=== PATIENT | female | born 1990 | race Caucasian/White ===

== ENCOUNTER 2020-03-05 09:04 | Emergency (ER) | payer OTHER ==
[2020-03-05 09:11] VITALS: BP 138/81
--- NOTE | 2020-03-05 09:43 | ED Physician Documentation ---
PD HPI URI - Stated complaint Stated Complaint: R EAR PX/FATIGUE - Chief complaint Chief Complaint: Heent - History obtained from History obtained from: Patient - History of Present Illness Timing - onset: How many days ago (has had some pain right ear for few days but got worse last night, with poor hearing.) Timing duration: Days Timing details: Gradual onset, Still present (worse last night) Associated symptoms: Sore throat (right side), Swollen nodes (right preauricular area). No: Fever, Chills, Dry cough, NVD Contributing factors: No: Sick contact Similar symptoms before: Has not had sx before Review of Systems Constitutional: denies: Fever, Chills Ears: reports: Loss of hearing, Ear pain. denies: Drainage/discharge Nose: denies: Rhinorrhea / runny nose, Congestion Throat: reports: Sore throat Respiratory: denies: Cough GI: denies: Nausea, Vomiting, Diarrhea Skin: denies: Rash, Lesions PD PAST MEDICAL HISTORY - Past Medical History Cardiovascular: None Respiratory: None Neuro: None Endocrine/Autoimmune: None - Present Medications Home Medications: Ambulatory Orders Medication Instructions Recorded Confirmed Amoxicillin 500 mg PO TID #21 capsule 03/05/20 Cetirizine [ZyrTEC] 10 mg PO DAILY #15 tablet 03/05/20 Naproxen 500 mg PO BID #20 tablet 03/05/20 - Allergies Allergies/Adverse Reactions: Allergies Allergy/AdvReac Type Severity Reaction Status Date / Time No Known Drug Allergies Allergy Verified 03/05/20 09:11 PD ED PE NORMAL - Vitals Vital signs reviewed: Yes - General General: Alert and oriented X 3, No acute distress, Well developed/nourished - HEENT HEENT: Pharynx benign. No: Ears normal (left is good; right with redness of the TM and fluid behind. ) - Neck Neck: Supple, no meningeal sign, Other (right preauricular small node. No tenderness at mastoid. ) - Cardiac Cardiac: RRR, No murmur - Respiratory Respiratory: Clear bilaterally Results - Vitals Vitals: Vital Signs - 24 hr 03/05/20 03/05/20 09:09 10:21 Temperature 36.6 C Heart Rate 73 78 Respiratory 16 16 Rate Blood Pressure 138/81 H O2 Saturation 98 100 Oxygen O2 Source Room air PD MEDICAL DECISION MAKING - ED course Complexity details: considered differential (ear drum with redness and swelling. Tonsils appear normal. ), d/w patient Departure - Departure Disposition: 01 Home, Self Care Clinical Impression: Right ear pain Otitis media Qualifiers: Otitis media type: suppurative Chronicity: acute Laterality: right Recurrence: non-recurrent Spontaneous tympanic membrane rupture: without spontaneous rupture Qualified Code(s): H66.001 - Acute suppurative otitis media without spontaneous rupture of ear drum, right ear Condition: Stable Record reviewed to determine appropriate education?: Yes Instructions: ED Otitis Media Acute Adult Prescriptions: Amoxicillin 500 mg PO TID #21 capsule Cetirizine [ZyrTEC] 10 mg PO DAILY #15 tablet Naproxen 500 mg PO BID #20 tablet Comments: Amoxicillin 3 times a day for a week. Add naproxen anti-inflammatory twice daily for a week to 10 days. Also cetirizine antihistamine daily for 1 to 2 weeks for presumed congestion and fluid in the middle ear. Add Tylenol if neede d for pain every 4-6 hours. Recheck if not improving well in the next couple of days and resolved over 3 to 5 days. Forms: Activity restrictions Discharge Date/Time: 03/05/20 10:21
[2020-03-05] MEDS ORDERED: CHERRY SYRUP 10 ML UDC PO ONE (10:03)
[2020-03-05] MEDS ORDERED: DEXAMETHASONE 10 MG/ML VIAL PO STA (10:03)
[2020-03-05] MEDS ORDERED: ACETAMINOPHEN 325 MG TABLET PO STA (10:03)
[2020-03-05] MEDS ORDERED: AMOXICILLIN 250 MG CAPSULE PO STA (10:03)
[2020-03-05] MEDS ORDERED: IBUPROFEN 600 MG TABLET PO STA (10:03)
== END 2020-03-05 10:21 | disposition home or self-care (01) ==
LOC: ED 09:04
DX: H66.001 Acute suppurative otitis media without spontaneous rupture of ear drum, right ear (principal)
CPT/HCPCS: 99283; 99284; A9270

== ENCOUNTER 2020-04-12 20:40 | Emergency (ER) | payer OTHER ==
[2020-04-12 21:58] LABS: BILIRUBIN,URINE NEGATIVE (NEGATIVE); GLUCOSE, URINE (UA) NEGATIVE (NEGATIVE); KETONES,URINE (UA) NEGATIVE (NEGATIVE); LEUKOCYTE ESTERASE, URINE NEGATIVE (NEGATIVE); NITRITE,URINE NEGATIVE (NEGATIVE); OCCULT BLOOD,URINE TRACE-INTA (NEGATIVE); PH,URINE 5.5 PH (5.0-7.5); PROTEIN,URINE NEGATIVE (NEGATIVE); UROBILINOGEN,URINE 0.2 (NORMAL) E.U./dL (NORMAL)
[2020-04-12 22:12] LABS: CLARITY,URINE CLEAR (CLEAR)
[2020-04-12 23:19] LABS: BASOPHILS # (AUTO) 0.1 10^3/uL (0.0-0.1); BASOPHILS % (AUTO) 0.6 %; EOSINOPHILS # (AUTO) 0.3 10^3/uL (0.0-0.7); EOSINOPHILS % (AUTO) 3.1 %; HGB - HEMOGLOBIN 15.9 g/dL (12.0-16.0); LYMPHOCYTES % (AUTO) 36.1 %; MEAN CORPUSCULAR HEMOGLOBIN 31.1 pg (27.0-31.0); MEAN CORPUSCULAR VOLUME 91.4 fL (81.0-99.0); MEAN PLATELET VOLUME 11.4 fL (7.9-10.8); MONOCYTES # (AUTO) 0.5 10^3/uL (0.0-1.0); MONOCYTES % (AUTO) 5.9 %; NEUTROPHILS # (AUTO) 4.5 10^3/uL (1.5-6.6); NEUTROPHILS % (AUTO) 54.1 %; PLT - PLATELET COUNT 234 10^3/uL (130-450); RED BLOOD COUNT 5.11 10^6/uL (4.20-5.40); RED CELL DISTRIBUTION WIDTH 11.9 % (12.0-15.0); WHITE BLOOD COUNT 8.3 x10^3/uL (4.8-10.8)
[2020-04-12 23:32] LABS: ALBUMIN 4.8 g/dL (3.2-5.5); ALBUMIN/GLOBULIN RATIO 1.7 (1.0-2.2); BILIRUBIN,TOTAL 0.5 mg/dL (0.2-1.0); CALCIUM 9.3 mg/dL (8.5-10.3); CREATININE 0.9 mg/dL (0.4-1.0); TOTAL PROTEIN 7.6 g/dL (6.7-8.2)
--- NOTE | 2020-04-12 23:44 | ED Physician Documentation ---
PD HPI ABD PAIN - Stated complaint Stated Complaint: FLANK PX - Chief complaint Chief Complaint: Abd Pain - History obtained from History obtained from: Patient - History of Present Illness Timing - onset: How many days ago (5) Timing - duration: Days Timing - details: Gradual onset, Waxing and waning Pain level max: 4 Quality: Pain Location: Other (left flank) Improved by: Other (nothing) Associated symptoms: No: Fever, Nausea, Vomiting, Diarrhea, Constipation Similar symptoms before: Has not had sx before Recently seen: Not recently seen Review of Systems Constitutional: reports: Reviewed and negative Cardiac: reports: Reviewed and negative Respiratory: reports: Reviewed and negative GI: reports: Reviewed and negative : denies: Dysuria, Frequency, Hematuria Skin: denies: Rash PD PAST MEDICAL HISTORY - Past Medical History Past Medical History: No Cardiovascular: None Respiratory: None Neuro: None Endocrine/Autoimmune: None GI: None 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 HEENT: None Psych: None Musculoskeletal: None Derm: None - Past Surgical History Past Surgical History: No - Present Medications Home Medications: Ambulatory Orders Medication Instructions Recorded Confirmed Amoxicillin 500 mg PO TID #21 capsule 03/05/20 Cetirizine [ZyrTEC] 10 mg PO DAILY #15 tablet 03/05/20 Naproxen 500 mg PO BID #20 tablet 03/05/20 - Allergies Allergies/Adverse Reactions: Allergies Allergy/AdvReac Type Severity Reaction Status Date / Time No Known Drug Allergies Allergy Verified 03/05/20 09:11 - Social History Does the pt smoke?: No Smoking Status: Never smoker Does the pt drink ETOH?: Yes Does the pt have substance abuse?: No - Immunizations Immunizations are current?: Yes - POLST Patient has POLST: No PD ED PE NORMAL - Vitals Vital signs reviewed: Yes - General General: Alert and oriented X 3, No acute distress, Well developed/nourished - Cardiac Cardiac: RRR, No murmur - Respiratory Respiratory: No respiratory distress, Clear bilaterally - Abdomen Abdomen: Normal bowel sounds, Soft, Non tender, Non distended - Back Back: No CVA TTP, No spinal TTP - Derm Derm: Normal color, Warm and dry, No rash - Extremities Extremities: No edema Results - Vitals Vitals: Vital Signs - 24 hr 04/13/20 02:13 Heart Rate 79 Respiratory 17 Rate Blood Pressure 131/93 H O2 Saturation 99 Oxygen O2 Source Room air - Labs Labs: Laboratory Tests 04/12/20 04/12/20 04/12/20 21:42 23:05 23:05 WBC 8.3 RBC 5.11 Hgb 15.9 Hct 46.7 MCV 91.4 MCH 31.1 H MCHC 34.0 RDW 11.9 L Plt Count 234 MPV 11.4 H Neut # (Auto) 4.5 Lymph # (Auto) 3.0 [place] # (Auto) 0.5 Eos # (Auto) 0.3 Baso # (Auto) 0.1 Absolute Nucleated RBC 0.00 Nucleated RBC % 0.0 Sodium 137 Potassium 3.5 Chloride 101 Carbon Dioxide 28 Anion Gap 8.0 BUN 12 Creatinine 0.9 Estimated GFR (MDRD) 75 L Glucose 92 Calcium 9.3 Total Bilirubin 0.5 AST 27 ALT 30 Alkaline Phosphatase 40 L Total Protein 7.6 Albumin 4.8 Globulin 2.8 Albumin/Globulin Ratio 1.7 Lipase 33 Urine Color YELLOW Urine Clarity CLEAR Urine pH 5.5 Ur Specific [place] >=1.030 H Urine Protein NEGATIVE Urine Glucose (UA) NEGATIVE Urine Ketones NEGATIVE Urine Occult Blood TRACE-INTA Urine Nitrite NEGATIVE Urine Bilirubin NEGATIVE Urine Urobilinogen 0.2 (NORMAL) Ur Leukocyte Esterase NEGATIVE Ur Microscopic Review NOT INDICATED Urine Culture Comments NOT INDICATED - Rads (name of study) CT A/P Radiology: Prelim report reviewed, See rad report PD MEDICAL DECISION MAKING - ED course Complexity details: reviewed results, re-evaluated patient, considered differential, d/w patient Departure - Departure Disposition: 01 Home, Self Care Clinical Impression: Flank pain Condition: Good Instructions: ED Flank Pain Uncertain Cause Discharge Date/Time: 04/13/20 02:14
[2020-04-13] MEDS ORDERED: HYDROcod/ACETAM 5/325 MG TABLET PO STA (02:03)
[2020-04-13 02:14] VITALS: BP 131/93
--- NOTE | 2020-04-13 08:01 | CT Report ---
PROCEDURE: Abdomen/Pelvis WO INDICATIONS: left flank pain TECHNIQUE: Noncontrast 5 mm thick sections acquired from the diaphragms to the symphysis. 5 mm coronal and sagi ttal reformats were then performed. For radiation dose reduction, the following was used: automated exposure control, adjustment of mA and/or kV according to patient size. COMPARISON: None. FINDINGS: Image quality: Excellent. ABDOMEN: Lung bases: Lung bases are clear. Heart size is normal. Solid organs: Liver and spleen are normal in size. Gallbladder is unremarkable Pancreas is normal in contours. No adrenal nodules. Kidneys are normal in size, without hydronephrosis or nephrolithia sis. Peritoneum and bowel: Unenhanced bowel loops demonstrate normal wall thickness and caliber. No free fluid or air. Nodes and vessels: No retroperitoneal or mesenteric adenopathy by size criteria. Aorta and inferior vena cava are normal in caliber. Miscellaneous: No ventral hernias. PELVIS: Genitourinary: Bladder wall thickness is normal. Miscellaneous: No inguinal hernias or adenopathy. Bones: No suspicious bony lesions. No vertebral body compression fractures. IMPRESSION: Unremarkable CT KUB. No renal stone, ureteral stone, or hydronephrosis. Reviewed by: Chase Joseph MD on 04/13/2020 6:59 AM [facility] Approved by: Chase Joseph MD on 04/13/2020 6:59 AM [facility] Station ID: [id number]
== END 2020-04-13 02:14 | disposition home or self-care (01) ==
LOC: ED 20:40
DX: R10.9 Unspecified abdominal pain (principal)
CPT/HCPCS: 36415; 74176; 80053; 81003; 83690; 85025; 99284; A9270; 81001; 81025; 87086

== ENCOUNTER 2020-04-25 09:37 | Emergency (ER) | payer OTHER ==
[2020-04-25 09:44] VITALS: BP 116/102
[2020-04-25] MEDS ORDERED: GI COCKTAIL 120 ML BOTTLE PO SCH (10:00)
--- NOTE | 2020-04-25 10:05 | ED Physician Documentation ---
History of Present Illness - Stated complaint Stated Complaint: THROAT SWELLING, EAR PX - Chief complaint Chief Complaint: Heent - History obtained from History obtained from: Patient - Additonal information Additional information: Patient comes to the emergency department complaining of a sore throat for the last 3 days. He states that he has mostly noticed it on the left side and that it hurts to swallow. He did see a white patch in the back of his throat yesterday, which she states he is taken a picture of. Patient has also noticed lymphadenopathy on the left and states the pain radiates up into his left ear. Patient denies any fevers or chills. No rhinorrhea or cough. Patient states that he has not had any abdominal pain, nausea, or vomiting. No sick contacts. Patient has had strep throat as an adult before. No other complaints at this time. Review of Systems Ten Systems: 10 systems reviewed and negative Constitutional: reports: Reviewed and negative Eyes: reports: Reviewed and negative Ears: reports: Reviewed and negative Nose: reports: Reviewed and negative Throat: reports: Sore throat Cardiac: reports: Reviewed and negative Respiratory: reports: Reviewed and negative GI: reports: Reviewed and negative : reports: Reviewed and negative Skin: reports: Reviewed and negative Musculoskeletal: reports: Reviewed and negative Neurologic: reports: Reviewed and negative Psychiatric: reports: Reviewed and negative Endocrine: reports: Reviewed and negative Immunocompromised: reports: Reviewed and negative PD PAST MEDICAL HISTORY - Past Medical History Cardiovascular: None Respiratory: None Neuro: None Endocrine/Autoimmune: None GI: None 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 HEENT: None Psych: None Musculoskeletal: None Derm: None - Past Surgical History Past Surgical History: No - Present Medications Home Medications: Ambulatory Orders Medication Instructions Recorded Confirmed Lidocaine HCl [Lidocaine HCl 10 ml PO TID PRN #100 ml 04/25/20 Viscous] predniSONE [Prednisone] 40 mg PO DAILY #10 tablet 04/25/20 - Allergies Allergies/Adverse Reactions: Allergies Allergy/AdvReac Type Severity Reaction Status Date / Time No Known Drug Allergies Allergy Verified 03/05/20 09:11 - Social History Does the pt smoke?: No Smoking Status: Never smoker Does the pt drink ETOH?: No Does the pt have substance abuse?: No - Immunizations Immunizations are current?: Yes - POLST Patient has POLST: No PD ED PE NORMAL - Vitals Vital signs reviewed: Yes - General General: Alert and oriented X 3, No acute distress - HEENT HEENT: Atraumatic, PERRL, EOMI, Ears normal, Moist mucous membranes, Other (Patient has moderate erythema without tonsillar edema, throughout his throat diffusely. He has a single white patch on his left anterior inferior tonsil. Tonsil is 2+ in size and symmetrical with the right. Resolving aphthous ulcer just anterior to left tonsil; no other oropharyngeal lesions.) - Neck Neck: Supple, no meningeal sign - Cardiac Cardiac: RRR, No murmur - Respiratory Respiratory: Clear bilaterally - Abdomen Abdomen: Normal bowel sounds, Soft, Non tender, Non distended - Derm Derm: Warm and dry - Extremities Extremities: No deformity - Neuro Neuro: Alert and oriented X 3 - Psych Psych: Normal mood, Normal affect Results - Vitals Vitals: Oxygen O2 Source Room air - Labs Labs: Microbiology 04/25/20 09:45 Group A Strep Throat Culture - Final Throat MIXED OROPHARYNGEAL BRENDA PRESENT. NO BETA STREP PRESENT IN CULTURE. Laboratory Tests 04/25/20 09:45 Group A Strep Rapid Negative PD MEDICAL DECISION MAKING - ED course Complexity details: reviewed results, re-evaluated patient, considered differential, d/w patient ED course: Pt was given a GI cocktail for relief, which he states has helped him before. Strep test was negative. We have discussed home management of the sx, as well as the usual indications for return. Departure - Departure Disposition: 01 Home, Self Care Clinical Impression: Viral pharyngitis Condition: Stable Instructions: ED Pharyngitis Viral Prescriptions: Lidocaine HCl [Lidocaine HCl Viscous] 10 ml PO TID PRN #100 ml PRN Reason: sore throat predniSONE [Prednisone] 40 mg PO DAILY #10 tablet Comments: Your strep test is negative today. Given that you had what appears to been a canker sore in front of your tonsil yesterday, your sore throat is most likely caused by virus. As such, this should resolve on its own, though it can be quite uncomfortable. Please take the medication prescribed to help with the symptoms until you are feeling better. If you feel that your symptoms are getti ng worse over the next week, especially if you develop fevers and white patches that are spreading over your tonsil or tonsils, then you should have the strep test rechecked. Discharge Date/Time: 04/25/20 10:45
[2020-04-25 10:17] LABS: RAPID STREP SCREEN Negative (Negative)
[2020-04-25] MEDS ORDERED: GI COCKTAIL 120 ML BOTTLE PO STA (10:25)
[2020-04-25] MEDS ORDERED: MAG HYDROX/AL HYDROX/SIMETH 30 ML UDC PO STA (10:29)
[2020-04-25] MEDS ORDERED: LIDOCAINE VISCOUS 2% 15 ML UDC MM STA (10:29)
[2020-04-25] MEDS ORDERED: diphenhydrAMINE ELIXIR 25 MG/10 ML UDC PO STA (10:30)
== END 2020-04-25 10:45 | disposition home or self-care (01) ==
LOC: ED 09:37
DX: J02.8 Acute pharyngitis due to other specified organisms (principal); B97.89 Other viral agents as the cause of diseases classified elsewhere; K12.0 Recurrent oral aphthae
CPT/HCPCS: 87070; 87430; 99283; 99284; A9270

== ENCOUNTER 2021-08-28 15:01 | Emergency (ER) | payer MEDICAID, OTHER ==
[2021-08-28 15:16] VITALS: BP 146/94
--- NOTE | 2021-08-28 15:38 | ED Physician Documentation ---
History of Present Illness - Stated complaint Stated Complaint: SORE THROAT, FATIGUE - Chief complaint Chief Complaint: Heent - Additonal information Additional information: 30-year-old male presents the emergency department for evaluation of fatigue myalgias sore throat cough and congestion. He does present with his stepson who also has similar. This patient is not yet vaccinated for COVID-19. His job is requesting COVID-19 test before returning to work. Patient denies any chest pain, shortness of air. No vomiting or diarrhea. Denies any history of hypertension, diabetes or immune compromise. Non-smoker. Review of Systems Constitutional: reports: Fever, Chills, Myalgias, Fatigue Eyes: reports: Reviewed and negative Nose: reports: Rhinorrhea / runny nose, Congestion Throat: reports: Reviewed and negative Cardiac: denies: Chest pain / pressure, Palpitations, Pedal edema Respiratory: reports: Cough. 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 HEENT: None Psych: None Musculoskeletal: None Derm: None - Past Surgical History Past Surgical History: No - Present Medications Home Medications: Ambulatory Orders Medication Instructions Recorded Confirmed Lidocaine HCl [Lidocaine HCl 10 ml PO TID PRN #100 ml 04/25/20 Viscous] predniSONE [Prednisone] 40 mg PO DAILY #10 tablet 04/25/20 - Allergies Allergies/Adverse Reactions: Allergies Allergy/AdvReac Type Severity Reaction Status Date / Time No Known Drug Allergies Allergy Verified 08/28/21 15:13 - Social History Does the pt smoke?: No Smoking Status: Never smoker Does the pt drink ETOH?: No Does the pt have substance abuse?: No - Immunizations Immunizations are current?: Yes - POLST Patient has POLST: No PD ED PE NORMAL - General General: Alert and oriented X 3, No acute distress - HEENT HEENT: PERRL - Neck Neck: Supple, no meningeal sign - Cardiac Cardiac: RRR, No murmur - Respiratory Respiratory: Clear bilaterally - Abdomen Abdomen: Normal bowel sounds, Soft, Non tender, Non distended - Back Back: No CVA TTP, No spinal TTP - Derm Derm: Normal color, Warm and dry, No rash - Extremities Extremities: No deformity - Neuro Neuro: Alert and oriented X 3 Eye Opening: Spontaneous Motor: Obeys Commands Verbal: Oriented GCS Score: 15 Results - Vitals Vitals: Vital Signs - 24 hr 08/28/21 15:13 Temperature 36.5 C Heart Rate 72 Respiratory 16 Rate Blood Pressure 146/94 H O2 Saturation 97 Oxygen O2 Source Room air PD MEDICAL DECISION MAKING - ED course Complexity details: d/w patient ED course: Well-appearing 30-year-old male presents emergency department for evaluation of fevers myalgias chills cough congestion. Patient is not yet vaccinated for COVID-19. His job is requesting a screen before returning to work. His stepson is also here sick with similar. COVID-19 outpatient screen is pending. Routine care suspected viral URI discussed. Advised to remain in quarantine until test results are known. Emergent return precautions otherwise discussed Departure - Departure Disposition: 01 Home, Self Care Clinical Impression: Upper respiratory infection Qualifiers: URI type: unspecified viral URI Qualified Code(s): J06.9 - Acute upper respi ratory infection, unspecified Condition: Stable Record reviewed to determine appropriate education?: Yes Comments: It and you are seen in the emergency department for fevers myalgias chills congestion cough. A COVID-19 test is pending. We will not have the results for 24 to 72 hours. You must remain in quarantine until the test results are known. Recommend you take Tylenol ibuprofen for body aches and chills. Please stay well-hydrated. We will call you only if the Covid test is positive. You have a Covid test pending. You need to self quarantine until the result is done and negative. Do not leave your house. Do not get near anybody. The results should be done in 48 to 72 hours. We will call with a positive result, the fastest way to get a negative result for confirmation though is to go to the hospital website at [email or web address], click on the my [facility] tab and sign up for the patient portal. If any friends or family get sick and would like to have a Covid test done, but do not have signs or symptoms that would necessitate being hospitalized, we encourage testing through our coronavirus swabbing station, call [phone] to schedule an appointment.
== END 2021-08-28 15:47 | disposition home or self-care (01) ==
LOC: ED 15:01
DX: J06.9 Acute upper respiratory infection, unspecified (principal); Z20.822 Contact with and (suspected) exposure to COVID-19
CPT/HCPCS: 99282; 99283

== ENCOUNTER 2021-12-22 21:53 | Emergency (ER) | payer MEDICAID ==
[2021-12-22] MEDS ORDERED: SODIUM CHLORIDE 0.9% 1,000 ML IV STA (22:30)
[2021-12-22 22:44] LABS: BASOPHILS # (AUTO) 0.1 10^3/uL (0.0-0.1); BASOPHILS % (AUTO) 0.8 %; EOSINOPHILS # (AUTO) 0.2 10^3/uL (0.0-0.7); EOSINOPHILS % (AUTO) 3.1 %; HCT - HEMATOCRIT 50.6 % (37.0-47.0); HGB - HEMOGLOBIN 17.3 g/dL (12.0-16.0); LYMPHOCYTES % (AUTO) 31.5 %; MEAN CORPUSCULAR HEMOGLOBIN 29.5 pg (27.0-31.0); MEAN CORPUSCULAR HGB CONC 34.2 g/dL (32.0-36.0); MEAN CORPUSCULAR VOLUME 86.3 fL (81.0-99.0); MEAN PLATELET VOLUME 10.5 fL (7.9-10.8); MONOCYTES # (AUTO) 0.6 10^3/uL (0.0-1.0); MONOCYTES % (AUTO) 9.4 %; NEUTROPHILS # (AUTO) 3.5 10^3/uL (1.5-6.6); NEUTROPHILS % (AUTO) 54.4 %; PLT - PLATELET COUNT 255 10^3/uL (130-450); RED BLOOD COUNT 5.86 10^6/uL (4.20-5.40); RED CELL DISTRIBUTION WIDTH 12.3 % (12.0-15.0); WHITE BLOOD COUNT 6.4 x10^3/uL (4.8-10.8)
[2021-12-22 22:55] LABS: ALBUMIN 4.4 g/dL (3.2-5.5); ALBUMIN/GLOBULIN RATIO 1.4 (1.0-2.2); BILIRUBIN,TOTAL 1.1 mg/dL (0.2-1.0); CALCIUM 8.9 mg/dL (8.5-10.3); POTASSIUM 3.2 mmol/L (3.5-5.0); TOTAL PROTEIN 7.6 g/dL (6.7-8.2)
[2021-12-22] MEDS ORDERED: POTASSIUM CHLORIDE 20 MEQ TABLET PO STA (23:34)
[2021-12-22] MEDS ORDERED: ACETAMINOPHEN 325 MG TABLET PO STA (23:35)
[2021-12-22 23:39] LABS: HCG UR QUAL NEGATIVE
--- NOTE | 2021-12-22 23:40 | ED Physician Documentation ---
History of Present Illness - Stated complaint Stated Complaint: DIARRHEA,COUGH,VOMITING,FEVER - Chief complaint Chief Complaint: General - History obtained from History obtained from: Patient - Additonal information Additional information: Patient with History significant for Female to male transgender Presenting for evaluation of 3-day history of loose watery stools And cough. His girlfriend also recently had similar symptoms which have improved. He denies blood in his stools. He reports 6 loose stools today. He did have a reported fever 2 days ago but no fever since. He also had2 episodes of emesis 2 days ago but has been able to tolerate p.o. intake today. He has had decreased appetite.He does occasionally have abdominal cramping prior to needing a bowel movement but otherwise denies abdominal pain.Nothing makes his symptoms better or worse. Denies recent travel or antibiotic use.Patient also reports having a cough with mucus at times. Denies chest pain or difficulty breathing.He does Report chest wall pain when only when he coughs. He took 1 dose of loperamide yesterday But it did not help his symptoms so he stopped. He has been vaccinated against Covid and received a booster. Review of Systems Constitutional: reports: Fever (Resolved) Nose: denies: Congestion Cardiac: denies: Chest pain / pressure Respiratory: reports: Cough. denies: Dyspnea GI: reports: Vomiting (Resolved), Diarrhea. 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 HEENT: None Psych: None Musculoskeletal: None Derm: None - Past Surgical History Past Surgical History: No - Present Medications Home Medications: Ambulatory Orders Medication Instructions Recorded Confirmed Testosterone Cypionate 200 mg IM 12/22/21 Loperamide [Imodium] 2 mg PO Q6HR PRN #12 tab 12/23/21 guaiFENesin/DEXTROMETHORPHAN 10 ml PO Q6H PRN #100 ml 12/23/21 [Robitussin Dm] - Allergies Allergies/Adverse Reactions: Allergies Allergy/AdvReac Type Severity Reaction Status Date / Time No Known Drug Allergies Allergy Verified 12/22/21 22:03 - Social History Does the pt smoke?: No Smoking Status: Never smoker Does the pt drink ETOH?: No Does the pt have substance abuse?: No - Immunizations Immunizations are current?: Yes - POLST Patient has POLST: No PD ED PE NORMAL - General General: Alert and oriented X 3, No acute distress, Well developed/nourished - HEENT HEENT: Atraumatic, PERRL, Moist mucous membranes - Neck Neck: Supple, no meningeal sign - Cardiac Cardiac: RRR, No murmur, No gallop - Respiratory Respiratory: No respiratory distress, Clear bilaterally - Abdomen Abdomen: Normal bowel sounds, Soft, Non tender, Non distended - Derm Derm: Normal color, Warm and dry - Extremities Extremities: No deformity - Neuro Neuro: Alert and oriented X 3, Normal speech - Psych Psych: Normal mood Results - Vitals Vitals: Vital Signs - 24 hr 12/22/21 21:56 Temperature 36.1 C L Heart Rate 98 Respiratory 18 Rate Blood Pressure 137/88 H O2 Saturation 98 Oxygen O2 Source Room air - Labs Labs: Laboratory Tests 12/22/21 12/22/21 12/22/21 22:39 22:39 23:15 WBC 6.4 RBC 5.86 H Hgb 17.3 H Hct 50.6 H MCV 86.3 MCH 29.5 MCHC 34.2 RDW 12.3 Plt Count 255 MPV 10.5 Neut # (Auto) 3.5 Lymph # (Auto) 2.0 [place] # (Auto) 0.6 Eos # (Auto) 0.2 Baso # (Auto) 0.1 Absolute Nucleated RBC 0.00 Nucleated RBC % 0.0 Sodium 136 Potassium 3.2 L Chloride 97 L Carbon Dioxide 29 Anion Gap 10.0 BUN 15 Creatinine 1.0 Estimated GFR (MDRD) 66 L Glucose 98 Calcium 8.9 Total Bilirubin 1.1 H AST 79 H ALT 180 H Alkaline Phosphatase 54 Total Protein 7.6 Albumin 4.4 Globulin 3.2 Albumin/Globulin Ratio 1.4 Lipase 33 Urine HCG, Qual NEGATIVE PD MEDICAL DECISION MAKING - ED course ED course: Presenting for evaluation of diarrhea and cough. Vital signs are stable. Abdominal exam is benign With no tenderness on repeated evaluations.Patient has had decreased p.o. intake in the setting of copious amounts of diarrhea, therefore IV fluids were ordered. Potassium is slightly low at 3.2.Labs are also abnormal for a slightly elevated AST and ALT. I did review these findings with the patient and He has been told that his liver tests have been abnormal in the past and is actually scheduled to see his doctor tomorrow.Chest x-ray is negative for pneumonia. I do not think his symptoms suggest a cardiac process.As he has no abdominal tenderness I do not think he needs an abdominal CT.Patient is feeling better with supportive care. Prescriptions were given for antidiarrhea and cough medications per his request.Patient was also advised of return precautions. Departure - Departure Disposition: 01 Home, Self Care Clinical Impression: Hypokalemia, LFT elevation, Cough Diarrhea Qualifiers: Diarrhea type: presumed infectious Qualified Code(s): R19.7 - Diarrhea, unspecified Condition: Stable Instructions: Hypokalemia Dc, ED Diarrhea Viral Prescriptions: Loperamide [Imodium] 2 mg PO Q6HR PRN #12 tab PRN Reason: Diarrhea guaiFENesin/DEXTROMETHORPHAN [Robitussin Dm] 10 ml PO Q6H PRN #100 ml PRN Reason: Cough Comments: Your symptoms are likely due to a viral process. I do not think you need antibiotics today. Please use the medications prescribed as needed. Prescriptions for antidiarrhea and cough medication were sent to the [facility] in [place].You should also follow-up with your primary care doctor regarding your abnormal liver tests.Please return to the emergency department if you develop any worsening symptoms such as vomiting, bloody diarrhea, abdominal pain or with any concerns. Forms: Activity restrictions
[2021-12-22] MEDS ORDERED: guaiFENesin/DEXTROMETHORPHAN 10 ML UDC PO SCH (23:45)
[2021-12-22] MEDS ORDERED: guaiFENesin/DEXTROMETHORPHAN 10 ML UDC PO STA (23:48)
--- NOTE | 2021-12-23 00:10 | XRAY Report ---
PROCEDURE: Chest 1 View X-Ray INDICATIONS: cough TECHNIQUE: One view of the chest was acquired. COMPARISON: None. FINDINGS: Surgical changes and devices: None. Lungs and pleura: No pleural effusions or pneumothorax. Lungs are clear. Mediastinum: Mediastinal contours appear normal. Heart size is normal. Bones and chest wall: No suspicious bony lesions. Overlying soft tissues appear unremarkable. IMPRESSION: No acute cardiopulmonary abnormality. Reviewed by: Keny Stephenson MD on 12/23/2021 12:09 AM [facility] Approved by: Keny Stephenson MD on 12/23/2021 12:09 AM [facility] Station ID: [id number]
[2021-12-23 00:46] VITALS: BP 134/78
== END 2021-12-23 00:45 | disposition home or self-care (01) ==
LOC: ED 21:53
DX: R19.7 Diarrhea, unspecified (principal); R05.9 Cough, unspecified; E87.6 Hypokalemia; R79.89 Other specified abnormal findings of blood chemistry
CPT/HCPCS: 36415; 71045; 80053; 81025; 83690; 85025; 96360; 96361; 99284; A9270

== ENCOUNTER 2022-01-26 08:06 | Outpatient (CLI) | payer MEDICAID ==
--- NOTE | 2022-01-26 11:06 | XRAY Report ---
PROCEDURE: Chest 2 View X-Ray INDICATIONS: PRODUCTIVE COUGH TECHNIQUE: 2 view(s) of the chest. COMPARISON: 12/22/2021 FINDINGS: Surgical changes and devices: None. Lungs and pleura: No pleural effusions or pneumothorax. Lungs are clear. Mediastinum: Mediastinal contours are normal. Heart size is normal. Bones and chest wall: No suspicious bony abnormalities. Soft tissues appear unremarkable. IMPRESSION: No acute cardiopulmonary disease. Reviewed by: Lacie Mukherjee MD on 01/26/2022 11:05 AM PDT Approved by: Lacie Mukherjee MD on 01/26/2022 11:05 AM PDT Station ID: [id number]
== END 2022-01-26 23:59 | disposition home or self-care (01) ==
LOC: DI.N 08:06
PROVIDERS: ATTEND Registered Nurse
DX: R05.3 Chronic cough (principal); R09.3 Abnormal sputum

== ENCOUNTER 2022-02-16 08:00 | Outpatient (CLI) | payer MEDICAID ==
--- NOTE | 2022-02-16 09:19 | XRAY Report ---
PROCEDURE: Shoulder 3 View LT INDICATIONS: L SHOULDER PX TECHNIQUE: Views of the location were acquired. COMPARISON: None. FINDINGS: Bones: No fractures or dislocations. No suspicious bony lesions. Soft tissues: No suspicious soft tissue calcifications. IMPRESSION: Normal left shoulder Reviewed by: Trace Brown on 02/16/2022 9:17 AM PDT Approved by: Trace Brown on 02/16/2022 9:17 AM PDT Station ID: [id number]
== END 2022-02-16 23:59 | disposition home or self-care (01) ==
LOC: DI.N 08:00
PROVIDERS: ATTEND Physician Assistant Medical
DX: M25.512 Pain in left shoulder (principal)

== ENCOUNTER 2022-03-05 08:05 | Outpatient (CLI) | payer MEDICAID ==
[2022-03-05 12:04] LABS: BASOPHILS # (AUTO) 0.1 10^3/uL (0.0-0.1); EOSINOPHILS # (AUTO) 0.3 10^3/uL (0.0-0.7); EOSINOPHILS % (AUTO) 4.6 %; HCT - HEMATOCRIT 53.7 % (37.0-47.0); HGB - HEMOGLOBIN 17.6 g/dL (12.0-16.0); LYMPHOCYTES # (AUTO) 2.5 10^3/uL (1.5-3.5); LYMPHOCYTES % (AUTO) 42.5 %; MEAN CORPUSCULAR HEMOGLOBIN 29.2 pg (27.0-31.0); MEAN CORPUSCULAR HGB CONC 32.8 g/dL (32.0-36.0); MEAN CORPUSCULAR VOLUME 89.2 fL (81.0-99.0); MEAN PLATELET VOLUME 11.6 fL (7.9-10.8); MONOCYTES # (AUTO) 0.3 10^3/uL (0.0-1.0); MONOCYTES % (AUTO) 5.6 %; NEUTROPHILS # (AUTO) 2.7 10^3/uL (1.5-6.6); NEUTROPHILS % (AUTO) 46.1 %; PLT - PLATELET COUNT 294 10^3/uL (130-450); RED BLOOD COUNT 6.02 10^6/uL (4.20-5.40); RED CELL DISTRIBUTION WIDTH 12.3 % (12.0-15.0); WHITE BLOOD COUNT 5.9 x10^3/uL (4.8-10.8)
[2022-03-05 12:20] LABS: ALBUMIN 4.5 g/dL (3.2-5.5); ALBUMIN/GLOBULIN RATIO 1.5 (1.0-2.2); ALKALINE PHOSPHATASE 49 IU/L (42-121); ALT ALANINE AMINOTRANSFERASE 88 IU/L (10-60); AST ASPARTATE AMINOTRANSFERASE 44 IU/L (10-42); BILIRUBIN,TOTAL 0.6 mg/dL (0.2-1.0); BUN - BLOOD UREA NITROGEN 14 mg/dL (6-20); CALCIUM 9.6 mg/dL (8.5-10.3); CARBON DIOXIDE - CO2 27 mmol/L (21-32); CHLORIDE 104 mmol/L (101-111); CHOL/HDL RATIO 5.1 (<4.4); CHOLESTEROL 185 mg/dL; CREATININE 0.9 mg/dL (0.4-1.0); GFR - MDRD 74 (>89); GLUCOSE 102 mg/dL (70-100); HDL CHOLESTEROL 36 mg/dL; LDL CHOLESTEROL,CALCULATED 120 mg/dL; LDL/HDL RATIO 3.3 (<4.4); POTASSIUM 4.4 mmol/L (3.5-5.0); SODIUM 138 mmol/L (135-145); TOTAL PROTEIN 7.6 g/dL (6.7-8.2); TRIGLYCERIDES 145 mg/dL; VLDL CHOLESTEROL 29 mg/dL
[2022-03-05 12:27] LABS: ESTIMATED AVERAGE GLUCOSE 97 mg/dL (70-100)
[2022-03-05 12:30] LABS: THYROID STIMULATING HORMONE 0.82 uIU/mL (0.34-5.60)
== END 2022-03-05 08:06 | disposition home or self-care (01) ==
LOC: LAB.N 08:05
PROVIDERS: ATTEND Nurse Practitioner Family
DX: I10 Essential (primary) hypertension (principal); E66.9 Obesity, unspecified
CPT/HCPCS: 36415; 80053; 80061; 83036; 83721; 84443; 85025

== ENCOUNTER 2022-12-27 11:55 | Emergency (ER) | payer MEDICAID ==
--- NOTE | 2022-12-27 12:39 | ED Physician Documentation ---
PD HPI DYSPNEA - Stated complaint Stated Complaint: COUGH - Chief complaint Chief Complaint: Resp - History obtained from History obtained from: Patient - Additional information Additional information: He developed symptomatic COVID on around the first of this month. Although he is fevers are gone, he continues to have productive cough and sinus pain. He is mildly short of breath with it. He is tried albuterol without relief. The cough is keeping him up at night. 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 HEENT: None Psych: None Musculoskeletal: None Derm: None - Past Surgical History Past Surgical History: No - Present Medications Home Medications: Ambulatory Orders Medication Instructions Recorded Confirmed Testosterone Cypionate 200 mg IM 12/22/21 Loperamide [Imodium] 2 mg PO Q6HR PRN #12 tab 12/23/21 guaiFENesin/DEXTROMETHORPHAN 10 ml PO Q6H PRN #100 ml 12/23/21 [Robitussin Dm] Amoxicillin 500 mg PO TID #30 cap 12/27/22 Beclomethasone 80 Mcg [Qvar 80] 1 puffs INH BID #1 ea 12/27/22 Benzonatate [Tessalon] 200 mg PO TID PRN #20 cap 12/27/22 guaiFENesin/CODEINE [Robitussin AC] 5 - 10 ml PO Q6H PRN #120 ml 12/27/22 - Allergies Allergies/Adverse Reactions: Allergies Allergy/AdvReac Type Severity Reaction Status Date / Time No Known Drug Allergies Allergy Verified 12/27/22 12:10 - Social History Does the pt smoke?: No Smoking Status: Never smoker Does the pt drink ETOH?: No Does the pt have substance abuse?: No - Immunizations Immunizations are current?: Yes - POLST Patient has POLST: No PD ED PE NORMAL - Vitals Vital signs reviewed: Yes - General General: Alert and oriented X 3, No acute distress - HEENT HEENT: Other (Mild bilateral maxillary sinus tenderness, normal oropharynx) - Neck Neck: Supple, no meningeal sign, No bony TTP - Cardiac Cardiac: RRR, No murmur - Respiratory Respiratory: No respiratory distress, Clear bilaterally - Neuro Neuro: Alert and oriented X 3, Normal speech Results - Vitals Vitals: Vital Signs - 24 hr 12/27/22 12:06 Temperature 36.3 C L Heart Rate 95 Respiratory 16 Rate Blood Pressure 148/87 H O2 Saturation 99 Oxygen O2 Source Room air Departure - Departure Disposition: 01 Home, Self Care Clinical Impression: Bronchitis Condition: Good Record reviewed to determine appropriate education?: Yes Instructions: ED Bronchitis Asthmatic Prescriptions: Amoxicillin 500 mg PO TID #30 cap Beclomethasone 80 Mcg [Qvar 80] 1 puffs INH BID #1 ea guaiFENesin/CODEINE [Robitussin AC] 5 - 10 ml PO Q6H PRN #120 ml PRN Reason: Cough Benzonatate [Tessalon] 200 mg PO TID PRN #20 cap PRN Reason: Cough Comments: I [email or web address] [place]. Call your doctor to arrange a follow-up appointment, make the next available appointment. In the interim, return anytime if worse or if new symptoms develop. Forms: Activity restrictions
[2022-12-27] MEDS ORDERED: BENZONATATE 100 MG CAPSULE PO STA (12:51)
[2022-12-27 12:52] VITALS: BP 130/106
== END 2022-12-27 13:00 | disposition home or self-care (01) ==
LOC: ED 11:55
DX: J40 Bronchitis, not specified as acute or chronic (principal)
CPT/HCPCS: 99283; 99284; A9270

== ENCOUNTER 2023-08-19 12:44 | Emergency (ER) | payer MEDICAID ==
[2023-08-19] MEDS ORDERED: HYDROmorphone 1 MG/ML CARPUJECT IVP STA ×2 (13:24→14:23)
[2023-08-19] MEDS ORDERED: ONDANSETRON 4 MG/2 ML VIAL IVP STA (13:24)
--- NOTE | 2023-08-19 13:25 | ED Physician Documentation ---
PD HPI HEADACHE - Stated complaint Stated Complaint: HEAD INJ - Chief complaint Chief Complaint: Heent - History obtained from History obtained from: Patient, Family - History of Present Illness Worst headache ever?: Worst headache ever? - Additional information Additional information: He was at work 2 days ago and hit his head on a door frame. Initially did not seem injured but starting yesterday developed severe headaches with vomiting and light sensitivity. He has no history of primary headache disorder such as migraines. 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 HEENT: None Psych: None Musculoskeletal: None Derm: None - Past Surgical History Past Surgical History: No - Present Medications Home Medications: Ambulatory Orders Medication Instructions Recorded Confirmed Testosterone Cypionate 200 mg IM MAINTENANCE.IV 12/22/21 08/19/23 Budesonide [Pulmicort Flexhaler] 1 inh IH BID #1 each 12/27/22 08/19/23 HYDROcod/ACETAM 5/325 [[place] 5/325] 1 - 2 tab PO Q6H PRN #10 tablet 08/19/23 Lisinopril [Zestril] 20 mg PO DAILY 08/19/23 08/19/23 Ondansetron Odt [Zofran] 4 mg TL Q6H PRN #10 tablet 08/19/23 - Allergies Allergies/Adverse Reactions: Allergies Allergy/AdvReac Type Severity Reaction Status Date / Time No Known Drug Allergies Allergy Verified 08/19/23 13:16 - Social History Does the pt smoke?: No Smoking Status: Never smoker Does the pt drink ETOH?: No Does the pt have substance abuse?: No - Immunizations Immunizations are current?: Yes - POLST Patient has POLST: No PD ED PE NORMAL - Vitals Vital signs reviewed: Yes - General General: Alert and oriented X 3, Other (Uncomfortable) - HEENT HEENT: PERRL, EOMI - Neck Neck: Supple, no meningeal sign, No bony TTP - Neuro Neuro: Alert and oriented X 3, distance learning coordinator 2-12 intact Eye Opening: Spontaneous Motor: Obeys Commands Verbal: Oriented GCS Score: 15 - Psych Psych: Normal mood, Normal affect Results - Vitals Vitals: Vital Signs - 24 hr 08/19/23 13:08 Temperature 36.7 C Heart Rate 77 Respiratory 17 Rate Blood Pressure 135/83 H O2 Saturation 99 Oxygen O2 Source Room air - Rads (name of study) CT of the head and cervical spine were negative Relevant Findings:: Final report received, EMP independent interpretation of test PD Medical Decision Making - ED course Complexity details: other (L&I paperwork [id number] completed and submitted) ED course: 32-year-old gentleman with head injury and now severe headache and neck pain. Relevant CTs were negative. After divided doses of IV medications he was feeling much better and requested discharge. Departure - Departure Disposition: 01 Home, Self Care Clinical Impression: Concussion Condition: Good Record reviewed to determine appropriate education?: Yes Instructions: ED Concussion Prescriptions: HYDROcod/ACETAM 5/325 [[place] 5/325] 1 - 2 tab PO Q6H PRN #10 tablet PRN Reason: Pain Ondansetron Odt [Zofran] 4 mg TL Q6H PRN #10 tablet PRN Reason: Nausea / Vomiting Comments: Take it easy over the weekend, rest. I did send a prescription for some pain medications and nausea medications up to [facility] in [place]. Follow-up with your doctor next week for recheck. Return for new or worsening symptoms. If pain is mild you can take Tylenol and/or ibuprofen as needed per package instructions. I am prescribing a short course of narcotic pain medication for you. These are potentially dangerous and addictive medications that should be used carefully. These medications may constipate you. Take an egon-[id number]-[id number] stool softener (docusate) twice daily with plenty of water while taking these medications. If you go 24 hours without a bowel movement, take [id number] miralax, per package instructions. Do not drink or drive while taking these medications. If you received narcotic or sedating medications while in the emergency department, do not drive for 24 hours. Store this medication in a safe, secure place and out of reach of children. It is a violation of federal law to give or sell this medication to another person or to use in a manner other than prescribed. The ED will not refill narcotic prescriptions, including prescriptions lost or stolen. To dispose of unwanted medications: 1. [facility]'s Office provides a drop box for medication in pill form only (no liquids) 8:00 am to 4:30 p.m. Wednesday-[place] in the lobby of the [place], [address], [place]. Empty pills into ziplock bag before disposal. Call [phone] for information. 2.[employer] is a free service available to all [facility] residents. Go to [email or web address] Note that many narcotic pain relievers also contain Tylenol/acetaminophen. Please ensure that your total dose of acetaminophen from all sources does not exceed 3 g (3000 mg) per day. Forms: PCP List
[2023-08-19] MEDS ORDERED: METOCLOPRAMIDE 10 MG/2 ML VIAL IVP STA (14:23)
--- NOTE | 2023-08-19 15:03 | CT Report ---
PROCEDURE: CERVICAL SPINE WO INDICATIONS: head inj TECHNIQUE: Noncontrast 3 mm thick sections acquired from the skull base to the T4 level. Sagittal and coronal r eformats were then constructed. For radiation dose reduction, the following was used: automated exp osure control, adjustment of mA and/or kV according to patient size. COMPARISON: None. FINDINGS: Image quality: Excellent. Bones: No fractures or dislocations. Visualized superior ribs are intact. Soft tissues: Prevertebral soft tissues are normal in thickness. No paravertebral hematomas. No ap ical pneumothoraces. IMPRESSION: No acute, displaced fracture or traumatic subluxation. Reviewed by: Jovany Leyva MD on 08/19/2023 3:02 PM PDT Approved by: Jovany Leyva MD on 08/19/2023 3:02 PM PDT Station ID: [id number]
--- NOTE | 2023-08-19 15:04 | CT Report ---
PROCEDURE: HEAD WO INDICATIONS: head inj TECHNIQUE: Noncontrast 4.5 mm thick angled axial sections acquired from the foramen magnum to the vertex. For r adiation dose reduction, the following was used: automated exposure control, adjustment of mA and/or kV according to patient size. COMPARISON: None. FINDINGS: Image quality: Excellent. CSF spaces: Basal cisterns are patent. No extra-axial fluid collections. Ventricles are normal in size and shape. Brain: No midline shift. No intracranial masses or hemorrhage. Martinez-white matter interface is norm al. Skull and face: Calvarium and visualized facial bones are intact, without suspicious lesions. Sinuses: Visualized sinuses and mastoids are clear. IMPRESSION: No acute intracranial pathology. Reviewed by: Jovany Leyva MD on 08/19/2023 3:02 PM PDT Approved by: Jovany Leyva MD on 08/19/2023 3:02 PM PDT Station ID: [id number]
[2023-08-19 16:08] VITALS: BP 124/87; O2SAT 100
== END 2023-08-19 16:03 | disposition home or self-care (01) ==
LOC: ED 12:44
DX: S06.0X0A Concussion without loss of consciousness, initial encounter (principal); W22.09XA Striking against other stationary object, initial encounter; Y99.0 Civilian activity done for income or pay; Z79.899 Other long term (current) drug therapy
CPT/HCPCS: 1040M; 70450; 72125; 96374; 96376; 99284; J1170; J2765